=== PATIENT | female | born 1995 | race African-American/Black ===

== ENCOUNTER 2018-10-12 12:07 | Emergency (ER) | payer OTHER ==
[~2018-10-12] VITALS: Ht 154.9 cm; Wt 51.3 kg
[2018-10-12] MEDS ORDERED: CEPACOL SORE T1 EAC8 PO (12:48)
[2018-10-12] MEDS ORDERED: MOBIC7.5 MG PO (12:48)
[2018-10-12 13:17] VITALS: BP 127/81
== END 2018-10-12 13:17 | disposition home or self-care (01) ==
LOC: ER 12:07
DX: J02.0 Streptococcal pharyngitis (principal)

== ENCOUNTER 2019-04-10 12:47 | Emergency (ER) | payer OTHER ==
[~2019-04-10] VITALS: Ht 154.9 cm; Wt 53.1 kg
[~2019-04-10 12:47] MED LIST: CEPACOL SORE T1 EAC8 PO; MOBIC7.5 MG PO
[2019-04-10 14:24] VITALS: BP 129/90
== END 2019-04-10 14:24 | disposition home or self-care (01) ==
LOC: ER 12:47
DX: J02.9 Acute pharyngitis, unspecified (principal)

== ENCOUNTER 2019-09-18 15:44 | Emergency (ER) | payer OTHER ==
[~2019-09-18] VITALS: Ht 149.9 cm; Wt 54.4 kg
[2019-09-18] MEDS ORDERED: FLAGYL500 M1 PO (16:21)
[2019-09-18 16:40] LABS: URINE BILIRUBIN NEGATIVE (Negative); URINE BLOOD TRACE (Negative); URINE CLARITY CLEAR; URINE COLOR YELLOW; URINE GLUCOSE-RANDOM* NEGATIVE (Negative); URINE KETONES TRACE (Negative); URINE LEUKOCYTES-REFLEX TRACE (Negative); URINE NITRITE-REFLEX NEGATIVE (Negative); URINE SPECIFIC GRAVITY >= 1.030 (1.005-1.035); URINE UROBILINOGEN 0.2 E.U./dl (0.2-1.0)
[2019-09-18 16:41] LABS: URINE PROTEIN (DIPSTICK) TRACE (Negative)
[2019-09-18 17:10] VITALS: BP 110/70
== END 2019-09-18 17:10 | disposition home or self-care (01) ==
LOC: ER 15:44
PROVIDERS: Physician Assistant
DX: A59.9 Trichomoniasis, unspecified (principal); N89.8 Other specified noninflammatory disorders of vagina

== ENCOUNTER 2020-06-06 16:59 | Emergency (ER) | payer OTHER ==
[~2020-06-06] VITALS: Ht 154.9 cm; Wt 58.1 kg
[~2020-06-06 16:59] MED LIST changes: +FLAGYL500 M1 PO
[2020-06-06] MEDS ORDERED: FLAGYL500 M1 PO (17:45)
[2020-06-06 18:40] VITALS: BP 137/96
== END 2020-06-06 18:48 | disposition home or self-care (01) ==
LOC: ER 16:59
DX: N76.0 Acute vaginitis (principal); B96.89 Other specified bacterial agents as the cause of diseases classified elsewhere; Z79.899 Other long term (current) drug therapy